=== PATIENT | male | born 1985 | race Caucasian/White ===

== ENCOUNTER 2022-06-28 17:34 | Emergency (ER) | payer BC ==
[2022-06-28 17:39] VITALS: BP 145/96; PULSE 71; RESP 16; TEMP 98.1
[2022-06-28] MEDS ORDERED: KETOROLAC 15 MG/ML 1 ML VIAL IM STA (17:46)
--- NOTE | 2022-06-28 18:10 | ED ---
General Adult HPI - General Chief complaint: Extremity Injury, Lower Stated complaint: Dislocated Knee Time Seen by Provider: 06/28/22 17:37 Source: patient, RN notes reviewed, old records reviewed Mode of arrival: ambulatory Limitations: no limitations - History of Present Illness Initial comments: 37-year-old male with previous history of ligamentous injury to the knee presenting with severe knee pain, right sided. Patient states he had rolled on his knee and felt a pop with significant pain. In the remote past patient had ACL repair. Denies numbness or tingling to the foot or ankle. No other injury reported. - Related Data Previous Rx's Medication Instructions Recorded HYDROcodone/APAP 5-325MG [[place] 1 tab PO Q6HR PRN #12 tab 06/28/22 5-325] Ibuprofen [Motrin] 600 mg PO Q8HR PRN #24 tab 06/28/22 Allergies Allergy/AdvReac Type Severity Reaction Status Date / Time Unable to Assess Allergy Verified 06/28/22 17:40 Review of Systems ROS Statement: Those systems with pertinent positive or pertinent negative responses have been documented in the HPI. ROS Other: All systems not noted in ROS Statement are negative. Past Medical History Past Medical History: Hypertension History of Any Multi-Drug Resistant Organisms: None Reported Additional Past Surgical History / Comment(s): knee surgey. Past Psychological History: No Psychological Hx Reported Smoking Status: Never smoker Past Alcohol Use History: Daily Past Drug Use History: None Reported General Exam Limitations: no limitations General appearance: alert, in no apparent distress Head exam: Present: atraumatic, normocephalic Eye exam: Present: normal appearance, PERRL ENT exam: Present: normal exam Neck exam: Present: normal inspection. Absent: tenderness, meningismus Respiratory exam: Absent: respiratory distress Cardiovascular Exam: Present: regular rate, normal rhythm GI/Abdominal exam: Present: soft. Absent: distended, tenderness Extremities exam: Present: tenderness, other (Distal pulses 2+). Absent: full ROM, joint swelling Neurological exam: Present: alert, oriented X3, CN II-XII intact. Absent: motor sensory deficit Psychiatric exam: Present: normal affect, normal mood Skin exam: Present: warm, dry, intact. Absent: cyanosis, diaphoretic, erythema Course Vital Signs 06/28/22 17:36 Temperature 98.1 F Pulse Rate 71 Respiratory 16 Rate Blood Pressure 145/96 O2 Sat by Pulse 98 Oximetry Medical Decision Making - Medical Decision Making 37-year-old male with history suggestive ligamentous injury to the right knee. There is normal alignment on exam, no patellar dislocation, distal pulses and sensation is intact. X-ray shows previous ACL repair without fracture dislocation. There is small joint effusion. I suspect the patient had a ligamentous injury, given knee immobilizer and orthopedic follow-up. Disposition Clinical Impression: Knee sprain Disposition: HOME SELF-CARE Condition: Good Instructions (If sedation given, give patient instructions): Knee Sprain (ED) Prescriptions: Ibuprofen [Motrin] 600 mg PO Q8HR PRN #24 tab PRN Reason: Pain HYDROcodone/APAP 5-325MG [[place] 5-325] 1 tab PO Q6HR PRN #12 tab PRN Reason: Pain Is patient prescribed a controlled substance at d/c from ED?: No Referrals: Rakan Vick MD [Primary Care Provider] - 1-2 days Sharon Yu DO [Doctor of Osteopathic Medicine] - 1-2 days Time of Disposition: 18:42
--- NOTE | 2022-06-28 18:26 | XR ---
EXAMINATION TYPE: XR knee complete RT DATE OF EXAM: 06/28/2022 COMPARISON: NONE HISTORY: Pain TECHNIQUE: 3 views FINDINGS: There is no evidence of fracture nor dislocation. There is previous ligament reconstructive surgery. There is small joint effusion. Joint spaces are fairly normal. IMPRESSION: Previous surgery. No fracture seen.
[2022-06-28] MEDS ORDERED: HYDROcodone/APAP 7.5-325MG 1 EACH TAB PO ONE (18:40)
== END 2022-06-28 19:10 | disposition home or self-care (01) ==
LOC: SUPCPDRO 17:34 → EC 17:34
DX: S83.91XA Sprain of unspecified site of right knee, initial encounter (principal); I10 Essential (primary) hypertension; Z79.899 Other long term (current) drug therapy; X58.XXXA Exposure to other specified factors, initial encounter
CPT/HCPCS: 73562; 99283; 96372; L1830; J1885

== ENCOUNTER 2024-08-28 10:51 | Day surgery (SDC) | payer BC, OTHER ==
[2024-08-28] MEDS: IV FLUID CONTINUATION 1,000 ML IV ONE ×2 (11:36→14:59)
[2024-08-28] MEDS: MIDAZOLAM 2 MG/2 ML VIAL IV ONE (12:03)
[2024-08-28] MEDS: DEXAMETHASONE SOD PHOSPHATE 4 MG/ML 1 ML VIAL IVP STA (12:17)
[2024-08-28] MEDS: ONDANSETRON 4 MG/2 ML VIAL IVP STA (12:18)
[2024-08-28] MEDS ORDERED: DEXAMETHASONE SOD PHOSPHATE 4 MG/ML 1 ML VIAL ONE (12:29)
[2024-08-28] MEDS ORDERED: ePHEDrine 50 MG/ML 1 ML VIAL ONE (12:29)
[2024-08-28] MEDS ORDERED: PROPOFOL 10 MG/ML 20 ML VIAL IV ONE (12:29)
[2024-08-28] MEDS ORDERED: MIDAZOLAM 2 MG/2 ML VIAL ONE (12:29)
[2024-08-28] MEDS ORDERED: HYDROmorphone (PF) 1 MG/ML ONE (12:29)
[2024-08-28] MEDS ORDERED: LIDOCAINE 1% INJ 10MG/ML (20 ML MDV) ONE (12:29)
[2024-08-28] MEDS ORDERED: ROPIVACAINE 5 MG/ML 30 ML VIAL ONE (12:29)
[2024-08-28] MEDS ORDERED: fentaNYL (PF) 50 MCG/ML 2 ML AMP ONE (12:29)
--- NOTE | 2024-08-28 14:03 | P.ANPRN ---
Procedure Note - Anesthesia - Nerve Block Performed Left Supraclavicular Single Time Out Performed: Yes Date of Procedure: 08/28/24 Procedure Start Time: 12:03 Procedure Stop Time: 12:09 Location of Patient: PreOp Indication: Acute Post-Operative Pain, Requested by Surgeon Sedation Type: Sedate with meaningful contact maintained Preparation: Sterile Prep Position: Supine Needle Types: Pajunk Needle Gauge: 21 Ultrasound used to visualize needle placement: Yes Ultrasound used to observe medication spread: Yes Blood Aspirated: No Pain Paresthesia on Injection Noted: No Resistance on Injection: Normal Image Stored and Saved: Yes Events: Uneventful and Well Tolerated (Ropivacaine 0.5% 20 cc plus dexamethasone 4 mg)
[2024-08-28 15:08] VITALS: RESP 16; TEMP 97.9
--- NOTE | 2024-08-28 16:03 | FL ---
EXAMINATION TYPE: FL guidance operating room, XR elbow limited LT DATE OF EXAM: 08/28/2024 2:56 PM COMPARISON: Chest radiographs from CLINICAL INDICATION: Male, 39 years old with history of Biceps tendon repair, , FLUOROSCOPY left bicep tendon repair, 20 sec fluoro, DAP .[id number] [id number] 6 images are submitted. [facility], , 08/28/2024 4:01 PM
[2024-08-28 16:15] VITALS: BP 120/80; PULSE 79
--- NOTE | 2024-09-01 07:44 | P.OP ---
Date of Procedure: 08/28/24 Preoperative Diagnosis: Left distal biceps rupture Postoperative Diagnosis: Same Procedure(s) Performed: Left distal biceps repair Implants: [employer] Endobutton Anesthesia: FRANCISCOA Surgeon: Byron Casanova Estimated Blood Loss (ml): 20 Pathology: none sent Condition: stable Disposition: PACU Indications for Procedure: Complete left distal biceps rupture in a patient who desires to regain as much strength as possible to the left arm Operative Findings: Complete left distal biceps tendon rupture, there had been some interval scarring of the biceps stump to the bicipital tuberosity there was only mild retraction of the tendon however there was considerable scar tissue formation over the tendon stump that required debridement and mild shortening of the tendon Description of Procedure: Patient was brought into the operating room where he remained on the stretcher in a supine position and armboard was placed to support the left arm after induction of general anesthesia by the anesthesia team a well-padded tourniquet was applied to the left upper arm, the left arm was prepped and draped in the normal standard fashion, after a timeout to again confirmed the correct operative site being the left arm an incision was designed centered on the bicipital tuberosity a longitudinal incision was made careful dissection was taken down ensuring that crossing sensory nerves were protected crossing blood vessels in the field or ligated with silk sutures and cauterized to control bleeding. The biceps tendon was identified there was considerable scar tissue formation that had formed over the tendon stump and this had actually adhered to the bicipital tuberosity the scar tissue was debrided and the tendon ends were freshened there was some mild shortening of the tendon due to the significant scar tissue formation and the unhealthy distal aspect of the avulsed tendon. A #2 fiber loop suture was used to whipstitch the distal end of the tendon and initial drill was utilized to perforate the anterior and posterior cortex of the bicipital tuberosity this was done while keeping the forearm in maximal supination in order to protect the PIN. After this and 8 mm over drill was used to open up the anterior cortex of the bicipital tuberosity. Bone debris was copiously irrigated to ensure none was left over in the wound bed. Appropriate position of the intended path for the button was confirmed with imaging. The Endobutton was prepared appropriately with the suture limbs this was passed through the bone tunnel and was confirmed to have seated in the appropriate position, the tendon was gently guided into the wound this required approximately 30 degrees of elbow flexion in order to properly seat the tendon into the bone tunnel. The tendon was secured with an additional not placed into the distal aspect of the tendon this was further reinforced with an interference screw into the bone tunnel and finally secured with yet an additional suture and not over top of the interference screw. Appropriate position of the Endobutton was again confirmed with imaging the wounds were copiously irrigated 1% lidocaine with epinephrine was placed into the wound bed to further aid in hemostasis. The tourniquet was deflated and there was no evidence of significant bleeding. The wounds were closed with a combination of Vicryl and absorbable barbed suture for the skin. Sterile dressings as well as a posterior splint were applied keeping the arm in 90 degrees of flexion. Patient was awoken from anesthesia and taken to the recovery area in stable condition. Plan - Discharge Summary Discharge Rx Participant: Yes New Discharge Prescriptions: New HYDROcodone/APAP 5-325MG [[place] 5-325] 1 tab PO Q4HR PRN #30 tab PRN Reason: Pain No Action Naproxen Sodium [Aleve] 220 mg PO BID PRN PRN Reason: Pain Losartan Potassium 100 mg PO DAILY Cyclobenzaprine [Flexeril] 5 mg PO TID Nebivolol HCl [Bystolic] 10 mg PO DAILY hydroCHLOROthiazide 12.5 mg PO DAILY Discharge Medication List Cyclobenzaprine [Flexeril] 5 mg PO TID 08/25/24 [History] Losartan Potassium 100 mg PO DAILY 08/25/24 [History] Naproxen Sodium [Aleve] 220 mg PO BID PRN 08/25/24 [History] Nebivolol HCl [Bystolic] 10 mg PO DAILY 08/25/24 [History] hydroCHLOROthiazide 12.5 mg PO DAILY 08/25/24 [History] HYDROcodone/APAP 5-325MG [[place] 5-325] 1 tab PO Q4HR PRN #30 tab 08/28/24 [Rx] Follow up Appointment(s)/Referral(s): Byron Casanova MD [STAFF PHYSICIAN] - 2 Weeks (YOU WILL NEED TO CALL TO SCHEDULE YOUR FOLLOW UP APPOINTMENT) Patient Instructions/Handouts: *Surgery [facility] - (Anesthesia) Discharge Instructions Outpatient Surgery, Repairs of the Biceps and Triceps Tendons (DC) Activity/Diet/Wound Care/Special Instructions: Non weight bearing to your left arm keep dressings in place until your follow up visit avoid lifting objects with your left hand You may begin to move your fingers on once pain is to a manageable level elevation of the elbow to the level of the heart as often as possible to decreas e pain and swelling A prescription pain medication has been provided for you, please follow prescription instructions Your pain medication is designed to provided you with reduction in your pain l evel, the medication will not eliminate ALL of your pain, the goal is to have you at a manageable pain level such that you can sleep and perform necessary daily functions Additionally you may take tylenol for relief of more minor pain A small amount of drainage or blood on your dressings is normal Please contact our office If you experience any new onset of numbness or tingling after your numbing medications wears off, your pain is uncontrolled with your current medications, you notice any pale or bluish discoloration of your fingers, large amounts of drainage or bleeding on your bandages. Discharge Disposition: HOME SELF-CARE
== END 2024-08-28 17:00 | disposition home or self-care (01) ==
LOC: OR 10:51
PROVIDERS: ATTEND Orthopaedic Surgery
DX: S46.212A Strain of muscle, fascia and tendon of other parts of biceps, left arm, initial encounter (principal); I10 Essential (primary) hypertension; Z79.899 Other long term (current) drug therapy; X58.XXXA Exposure to other specified factors, initial encounter
CPT/HCPCS: 64415; 73070; 24342; C1713; J2250; J1100; J0690; J2405; J2003; J3010; J1171; J2795; J2704